=== PATIENT | male | born 2000 ===

== ENCOUNTER 2023-09-11 09:54 | Outpatient (CLI) | payer OTHER, SELFPAY ==
[2023-09-11 10:20] LABS: Basophils Absolute Auto 0.04 K/mm3 (0.00-0.10); Basophils Percent Auto 0.4 % (0.0-1.0); Eosinophils Absolute Auto 0.04 K/mm3 (0.02-0.50); Eosinophils Percent Auto 0.4 % (1.0-6.0); Hematocrit 49.2 % (40.0-54.0); Hemoglobin 15.9 g/dL (14.0-18.0); Immature Granulocyte Absolute 0.05 K/mm3 (0.00-0.00); Immature Granulocyte Percent A 0.5 % (0.0-0.0); Lymphocytes Absolute Auto 3.88 K/mm3 (1.10-4.50); Lymphocytes Percent Auto 35.6 % (18.0-42.0); Mean Corpuscular HGB Conc 32.3 g/dL (32-36); Mean Corpuscular Volume 92.8 fL (78.0-102.0); Mean Platelet Volume 9.8 fl (8.7-11.0); Monocytes Absolute Auto 0.95 K/mm3 (0.10-0.90); Monocytes Percent Auto 8.7 % (2.0-11.0); Neutrophils Absolute Auto 5.95 K/mm3 (1.70-7.20); Neutrophils Percent Auto 54.4 % (50.0-70.0); Platelet Count Result 302 K/mm3 (150-420); Red Cell Distribution Width 12.2 % (11.6-14.4); White Blood Count 10.9 K/mm3 (4.8-10.8)
[2023-09-11 11:39] LABS: Alanine Aminotransferase 48 U/L (16-63); Albumin Level 4.5 g/dL (3.4-5.0); Alkaline Phosphatase 81 U/L (46-116); Anion Gap 7 mmol/L (4-12); Aspartate Amino Transferase 22 U/L (15-37); Bilirubin,Total 0.8 mg/dL (0.00-1.00); Blood Urea Nitrogen 14 mg/dL (7-18); Calcium 9.8 mg/dL (8.5-10.1); Carbon Dioxide 33 mmol/L (21-32); Chloride 100 mmol/L (98-108); Estimated Glomerular Filt Rate > 60; Glucose 90 mg/dL (70-99); Lipase 164 U/L (16-77); Osmolality Calculated 290 mOsm/kg (285-295); Potassium 3.9 mmol/L (3.5-5.1); Sodium 140 mmol/L (136-145); Total Protein 7.7 g/dL (6.4-8.2)
[2023-09-11 11:47] LABS: HIV 1 P24 AG Negative (Negative); HIV 1/2 AB Negative (Negative)
[2023-09-12 12:09] LABS: Hepatitis B Surface Antigen NON-REACTIVE (NON-REACTIVE); Hepatitis C Virus Antibody NON-REACTIVE (NON-REACTIVE)
[2023-09-12 13:03] LABS: Hepatitis A Antibody IgM NON-REACTIVE (NON-REACTIVE); Hepatitis B Core Antibody NON-REACTIVE (NON-REACTIVE)
[2023-09-13 19:38] LABS: Trichomonas Vag PCR NOT DETECTED (NOT DETECTE)
== END 2023-09-11 09:55 | disposition home or self-care (01) ==
LOC: CHSLAB 09:58
PROVIDERS: PCP Family Medicine; Visit Provider Family Medicine
DX: R74.01 Elevation of levels of liver transaminase levels (principal); R10.11 Right upper quadrant pain; R30.0 Dysuria; R10.9 Unspecified abdominal pain
CPT/HCPCS: 36415; 80053; 80074; 83690; 85025; 87210; 87661; 87806

== ENCOUNTER 2023-09-12 07:12 | Outpatient (CLI) | payer OTHER, SELFPAY ==
--- NOTE | ~2023-09-12 | US_ITS ---
Limited Abdominal Sonogram: Real-time sonographic imaging of the right upper quadrant was performed. Clinical History: Abdominal pain Findings: The liver appears normal with no evidence of bile duct dilatation. Questionable subtle mario id mass at the left hepatic lobe measuring 3.0 x 1.5 cm. Main portal vein demonstrates normal directi on of flow. The gallbladder is partially distended, with no evidence of gallstone. There is minimal g allbladder wall thickening, which could be due to partial distention. The common bile duct measures 3 mm. The visualized pancreas, aorta, and IVC are unremarkable. Impression: Possible subtle 3.0 x 1.5 cm left hepatic lobe mass. Pre and postcontrast CT or MR recommended to fur ther evaluate. Reviewed, dictated and finalized at [facility]. Impression: Possible subtle 3.0 x 1.5 cm left hepatic lobe mass. Pre and postcontrast CT or MR recommended to further evaluate.
--- NOTE | ~2023-09-12 | US_ITS ---
EXAMINATION: US scrotum DATE: 09/12/2023 08:07 INDICATION: Chronic palpable lump at the left scrotum TECHNIQUE: Testicular sonogram utilizing grayscale and Doppler COMPARISON: None. FINDINGS: The right testis measures 3.3 x 2.4 x 2.3 cm. The left testis measures 3.5 x 2.5 x 2.3 cm. Symmetric normal grayscale appearance to both testes. There is normal vascular flow to both testes. There are b ilateral epididymal cysts measuring up to 2.1 cm on the left and measuring 3-4 mm on the right. The b ilateral epididymides are otherwise normal with normal vascular flow. There is no varicocele or hydro gale. IMPRESSION: 1. Bilateral epididymal cysts the larger on the left measuring 2.1 cm which likely represents the pa lpable abnormality of concern. Reviewed, dictated and finalized at location [facility]. IMPRESSION: 1. Bilateral epididymal cysts the larger on the left measuring 2.1 cm which yimi álvarez represents the palpable abnormality of concern.
== END 2023-09-12 07:13 | disposition home or self-care (01) ==
LOC: CHSIMG 07:13
PROVIDERS: PCP Family Medicine; Visit Provider Family Medicine
DX: N50.89 Other specified disorders of the male genital organs (principal); N50.3 Cyst of epididymis
CPT/HCPCS: 76705; 76870

== ENCOUNTER 2023-09-20 07:36 | Outpatient (CLI) | payer OTHER, SELFPAY ==
--- NOTE | ~2023-09-20 | CT_ITS ---
EXAMINATION: CT abdomen pelvis wo/w con DATE: 09/20/2023 08:04 INDICATION: Hepatomegaly, not elsewhere classified. Liver mass. TECHNIQUE: Computed tomography (CT) of the abdomen and pelvis was performed without and with 100 mL O mnipaque 350 intravenous contrast. Automated exposure control and iterative reconstruction technique were employed. The dose-length product was 429.17 mGy-cm. COMPARISON: Ultrasound abdomen 09/12/2023 FINDINGS: The visualized portions of the lung bases are clear without pneumonia or pleural effusion. The heart size is normal. No pericardial effusion. The liver, gallbladder, spleen, pancreas, adrenal glands, and left kidney are normal. There is a 7 mm cyst in right kidney. There are no dilated loops of bowel. There are no pathologically enlarged lymph nodes. There is no free intraperitoneal fluid. T here is mild lumbar spondylosis. IMPRESSION: 1. Normal liver. No abnormal liver mass to correlate with the ultrasound finding. Reviewed, dictated and finalized at location [facility]. IMPRESSION: 1. Normal liver. No abnormal liver mass to correlate with the ultrasound [email or web address] [email or web address]
== END 2023-09-20 07:37 | disposition home or self-care (01) ==
LOC: CHSIMG 07:36
PROVIDERS: PCP Family Medicine; Visit Provider Family Medicine
DX: R16.0 Hepatomegaly, not elsewhere classified (principal)
CPT/HCPCS: 74178; Q9967